=== PATIENT | female | born 1980 | race African-American/Black ===

== ENCOUNTER 2024-04-04 20:30 | Emergency (ER) | payer MEDICAID, OTHER ==
[~2024-04-04] VITALS: Ht 172.7 cm; Wt 111.0 kg
[2024-04-04 20:34] VITALS: BP 138/76; PULSE 100; RESP 18; TEMP 97.4; O2SAT 100
[2024-04-04 23:25] LABS: CHLORIDE 108 mEq/L (98-107); POTASSIUM 4.1 mEq/L (3.5-5.1); SODIUM 141 mEq/L (136-145)
[2024-04-04 23:27] LABS: CALCIUM 9.7 mg/dL (8.7-10.4); CARBON DIOXIDE 28 mEq/L (21-32)
[2024-04-04 23:29] LABS: INR 0.9; PROTHROMBIN TIME 9.8 sec (9.6-11.0)
[2024-04-04 23:31] LABS: BASOPHILS % 0.3 % (0.0-2.0); EOSINOPHILS % 0.1 % (0.0-5.0); HEMATOCRIT. 37.5 % (36.0-48.0); HEMOGLOBIN. 12.8 g/dL (12.0-16.0); MEAN CORPUSCULAR HEMOGLOBIN 33.7 pg (28.0-32.0); MEAN CORPUSCULAR HGB CONC 34.2 g/dL (31.0-37.0); MEAN CORPUSCULAR VOLUME 98.7 fL (81.0-99.0); MEAN PLATELET VOLUME 7.6 fl (7.4-10.4); MONOCYTES % 2.7 % (2.0-8.0); NEUTROPHILS % 87.9 % (40.0-76.0); PLATELET 303 x1000/uL (130-400); RED BLOOD CELL COUNT 3.79 mill/uL (4.2-5.4); RED CELL DISTRIBUTION WIDTH 14.1 % (11.6-14.6); WHITE BLOOD COUNT 7.7 x1000/uL (4.5-11.0)
[2024-04-04 23:32] LABS: CREATININE 0.8 mg/dL (0.6-1.0); GLUCOSE 99 mg/dL (70-105); UREA NITROGEN BLOOD 6 mg/dL (9-23)
[2024-04-04 23:32] LABS: CLARITY URINE CLEAR (CLEAR); COLOR URINE DARK YELLOW (YELLOW); GLUCOSE URINE NEGATIVE (NEGATIVE); KETONES URINE TRACE (NEGATIVE); LEUKOCYTE ESTERASE URINE NEGATIVE (NEGATIVE); NITRITE URINE NEGATIVE (NEGATIVE); OCCULT BLOOD URINE NEGATIVE (NEGATIVE); PROTEIN URINE 1+ (NEGATIVE); SPECIFIC GRAVITY URINE 1.031 (1.005-1.030)
[2024-04-04 23:34] LABS: ALANINE AMINOTRANSFERASE 16 IU/L (10-49); ALBUMIN 4.6 g/dL (3.2-4.8); ASPARTATE AMINOTRANSFERASE 17 IU/L (<34); BILIRUBIN DIRECT 0.1 mg/dL (<=3.0)
[2024-04-04 23:35] LABS: BILIRUBIN TOTAL 0.4 mg/dL (0.1-1.0); PROTEIN TOTAL 7.3 g/dL (6.0-8.3)
[2024-04-04 23:36] LABS: ETHANOL BLOOD < 10 mg/dL (<10)
[2024-04-04 23:40] LABS: *AMPHETAMINES SCREEN URINE NEGATIVE (NEGATIVE); *BARBITURATES SCREEN URINE NEGATIVE (NEGATIVE); *BENZODIAZEPINES SCREEN URINE NEGATIVE (NEGATIVE); *COCAINE SCREEN URINE NEGATIVE (NEGATIVE); CANNABINOID URINE SCREEN PRESUMPTIVE POSITIVE (NEGATIVE); ECSTASY MDMA SCREEN URINE NEGATIVE (NEGATIVE); METHADONE URINE SCREEN NEGATIVE (NEGATIVE); OPIATES URINE SCREEN NEGATIVE (NEGATIVE); PHENCYCLIDINE URINE SCREEN NEGATIVE (NEGATIVE)
[2024-04-04] MEDS ORDERED: ONDA4TAB50 MT (23:42)
[2024-04-04] MEDS ORDERED: MAG355OR21 MT (23:42)
[2024-04-04] MEDS ORDERED: ACET-2708 MT (23:42)
[2024-04-04] MEDS: SODIUM CHLORIDE 0.9% 1,000 ML IV ONE (23:57)
[2024-04-04] MEDS: ONDANSETRON HCL 4MG/2ML INJ IV NR (23:57)
[2024-04-04 23:58] LABS: WBC URINE 0-2 /hpf (0-2)
[2024-04-04] MEDS: ACETAMINOPHEN 325MG TABLET PO NR (23:58)
[2024-04-04 23:59] LABS: BACTERIA URINE 1+; MUCUS URINE 2+ /lpf (< = 2+); RBC URINE 0-2 /hpf (0-2); SQUAMOUS EPITHELIAL CELL URINE FEW /lpf (RARE/1+)
== END 2024-04-05 01:51 | disposition home or self-care (01) ==
LOC: ER 20:30
DX: K42.9 Umbilical hernia without obstruction or gangrene (principal); K29.70 Gastritis, unspecified, without bleeding
CPT/HCPCS: 80076; 80305; 80048; 81003; 80320; 83690; 85025; 85610; 36415; 96361; 96374; 99283; J2405; J7030; G0480

== ENCOUNTER 2024-09-26 04:16 | Emergency (ER) | payer MEDICAID, OTHER ==
[~2024-09-26] VITALS: Ht 170.2 cm; Wt 70.0 kg
[~2024-09-26 04:16] MED LIST: ACET-2708 MT; MAG355OR21 MT; ONDA4TAB50 MT
[2024-09-26 04:19] VITALS: BP 142/62; PULSE 84; RESP 14; TEMP 36.9; O2SAT 100
[2024-09-26] MEDS: ACETAMINOPHEN 325MG TABLET PO ONE (05:10)
[2024-09-26 06:13] LABS: BASOPHILS % 0.3 % (0.0-2.0); EOSINOPHILS % 0.9 % (0.0-5.0); HEMATOCRIT. 35.6 % (36.0-48.0); HEMOGLOBIN. 11.9 g/dL (12.0-16.0); LYMPHOCYTES % 11.9 % (20.0-50.0); MEAN CORPUSCULAR HEMOGLOBIN 33.1 pg (28.0-32.0); MEAN CORPUSCULAR HGB CONC 33.4 g/dL (31.0-37.0); MEAN CORPUSCULAR VOLUME 99.3 fL (81.0-99.0); MEAN PLATELET VOLUME 8.5 fl (7.4-10.4); MONOCYTES % 5.9 % (2.0-8.0); PLATELET 260 x1000/uL (130-400); RED BLOOD CELL COUNT 3.59 mill/uL (4.2-5.4); RED CELL DISTRIBUTION WIDTH 14.2 % (11.6-14.6); WHITE BLOOD COUNT 6.6 x1000/uL (4.5-11.0)
[2024-09-26 06:30] LABS: CHLORIDE 105 mEq/L (98-107); POTASSIUM 3.4 mEq/L (3.5-5.1); SODIUM 139 mEq/L (136-145)
[2024-09-26 06:31] LABS: CARBON DIOXIDE 24 mEq/L (21-32)
[2024-09-26 06:32] LABS: CALCIUM 9.1 mg/dL (8.7-10.4)
[2024-09-26 06:36] LABS: GLUCOSE 91 mg/dL (70-105)
[2024-09-26 06:37] LABS: UREA NITROGEN BLOOD 9 mg/dL (9-23)
[2024-09-26 06:38] LABS: ALANINE AMINOTRANSFERASE 37 IU/L (10-49); ASPARTATE AMINOTRANSFERASE 30 IU/L (<34)
[2024-09-26 06:39] LABS: ALBUMIN 3.9 g/dL (3.2-4.8); BILIRUBIN TOTAL 0.5 mg/dL (0.1-1.0); PROTEIN TOTAL 6.6 g/dL (6.0-8.3)
[2024-09-26] MEDS ORDERED: IOHEXOL-300 100 ML BOTTLE ONE (06:41)
[2024-09-26] MEDS ORDERED: AMOX1TAB16 MT (06:54)
[2024-09-26] MEDS ORDERED: SULF1TAB48 MT (06:54)
[2024-09-26 06:59] LABS: HCG SCREEN NEGATIVE
[2024-09-26 07:14] LABS: CREATININE 0.5 mg/dL (0.6-1.0)
== END 2024-09-26 07:35 | disposition home or self-care (01) ==
LOC: ER 04:32
DX: L03.213 Periorbital cellulitis (principal); F20.9 Schizophrenia, unspecified
CPT/HCPCS: 99285; 70481; 80053; 84703; 85025; 36415; Q9967

== ENCOUNTER 2024-09-26 09:22 | Emergency (ER) | payer MEDICAID ==
[~2024-09-26] VITALS: Ht 180.3 cm; Wt 68.0 kg
[~2024-09-26 09:22] MED LIST changes: +AMOX1TAB16 MT; +SULF1TAB48 MT
[2024-09-26 09:28] VITALS: O2SAT 98
[2024-09-26 09:32] VITALS: BP 114/56; PULSE 66; RESP 16; TEMP 36.5; O2SAT 100
== END 2024-09-26 10:20 | disposition home or self-care (01) ==
LOC: ER 09:22
DX: Z00.00 Encounter for general adult medical examination without abnormal findings (principal)
CPT/HCPCS: 99281